=== PATIENT | male | born 1995 | race Caucasian/White ===

== ENCOUNTER 2017-02-23 21:01 | Emergency (ER) | payer BC, OTHER ==
[~2017-02-23] VITALS: Ht 180.3 cm; Wt 63.5 kg
[2017-02-23 21:18] VITALS: BP 124/73
[2017-02-23] MEDS ORDERED: LIDOCAINE 1% HCL (LOCAL ANESTH.) INJ 20ML MDV ID ONE (22:00)
[2017-02-23] MEDS ORDERED: BACITRACIN TOP OINT 1 UD PKG TOP ONE (22:00)
== END 2017-02-23 22:56 | disposition home or self-care (01) ==
LOC: ER 21:01
DX: S61.216A Laceration without foreign body of right little finger without damage to nail, initial encounter (principal); W26.8XXA Contact with other sharp object(s), not elsewhere classified, initial encounter; Y93.89 Activity, other specified; Y99.8 Other external cause status; Y92.89 Other specified places as the place of occurrence of the external cause
CPT/HCPCS: 12001; 99283; J2001